=== PATIENT | female | born 1990 | race Caucasian/White ===

== ENCOUNTER 2018-01-12 20:18 | Emergency (ER) | payer BC, OTHER ==
[2018-01-12] MEDS ORDERED: Sodium Chloride 0.9% 2.5 ML Syringe FLUSH PRN (21:30)
[2018-01-12] MEDS ORDERED: Sodium Chloride 0.9% 10 ML Syringe FLUSH PRN (21:30)
--- NOTE | 2018-01-12 21:34 | EDM.PDOC ---
ED HPI GENERAL MEDICAL PROBLEM - General Chief Complaint: Abdominal Pain Stated Complaint: SEVERE STOMACH PAIN Time Seen by Provider: 01/12/18 21:20 - History of Present Illness INITIAL COMMENTS - FREE TEXT/NARRATIVE: HISTORY AND PHYSICAL: History of present illness: The patient is a 27-year-old female whose only significant surgical history is of a and she has no GI history and presents with sudden onset of periumbilical pain that radiated bilaterally to the sides and discomfort in her right shoulder that started about 6:30 PM. Patient had a normal day up until that point with no systemic problems and has had no fever chills cough chest pain or shortness of breath and had a normal bowel movement today and normal urine output. The patient was having food and some cocktails with friends and that discomfort started during that time period. It has persisted but has lessened in intensity. She says if anything it radiates up to her right upper quadrant but not to her lower quadrants or her flanks. She has no discrete shoulder bony pain and has full range of motion of her right upper extremity. She says that the pain is better when she takes a deep breath but when she exhales it seems to be discomforting. She has no discrete mid abdominal pain and no real left upper quadrant tenderness mostly in the periumbilical and right side. Patient denies taking anything For pain prior to coming here. Patient did have 1 small emesis but is not nauseated currently Review of systems: As per history of present illness and below otherwise all systems reviewed and negative. Past medical history: As per history of present illness and as reviewed below otherwise noncontributory. Surgical history: As per history of present illness and as reviewed below otherwise noncontributory. Social history: No reported history of drug or alcohol abuse. Family history: As per history of present illness and as reviewed below otherwise noncontributory. Physical exam: General: Well-developed well-nourished mildly overweight female who is nontoxic and vital signs have been reviewed by me. Patient moves easily in the ED without distress HEENT: Atraumatic, normocephalic, negative for conjunctival pallor or scleral icterus, mucous membranes moist, throat clear, neck supple, nontender, trachea midline. Lungs: Clear to auscultation, breath sounds equal bilaterally, chest nontender. Heart: S1S2, regular, negative for clicks, rubs, or JVD. Abdomen: Soft, nondistended, mildly tender on very deep palpation in the periumbilical and right upper quadrant areas but there is no rebound guarding or masses and bowel sounds are hypoactive. Negative for masses or hepatosplenomegaly. Negative for costovertebral tenderness. Pelvis: Stable nontender. Genitourinary: Deferred. Rectal: Deferred. Extremities: Atraumatic, negative for cords or calf pain. Neurovascular unremarkable. Neuro: Awake, alert, oriented. Cranial nerves II through XII unremarkable. Cerebellum unremarkable. Motor and sensory unremarkable throughout. Exam nonfocal. Diagnostics: CBC CMP amylase lipase UA UCG H. pylori CT scan of the abdomen and pelvis Therapeutics: IV; patient declined medication at this time for pain is aware of all testing results and need for follow-up with your provider at [facility] and possible need for further testing including a gallbladder ultrasound and/or a HIDA scan Impression: Abdominal pain etiology unclear stable Definitive disposition and diagnosis as appropriate pending reevaluation and review of above. gastric area Pain Score (Numeric/FACES): 6 - Related Data Allergies Allergy/AdvReac Type Severity Reaction Status Date / Time amoxicillin Allergy Rash Verified 01/12/18 21:09 Home Meds: Home Meds . 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: Musculoskeletal History: Reports: Fracture Other Musculoskeletal History: hx: Fracturing Right wrist twice Psychiatric History: Reports: Anxiety, Depression Endocrine/Metabolic History: Reports: Obesity/BMI 30+ - Past Surgical History HEENT Surgical History: Reports: Tonsillectomy Cardiovascular Surgical History: Reports: Other (See Below) Female Surgical History: Reports: Section Social & Family History - Family History Family Medical History: Noncontributory Cardiac: Reports: Heart Failure, [place] Psychiatric: Reports: Depression Oncologic: Reports: Colon - Tobacco Use Smoking Status *Q: Never Smoker - Recreational Drug Use Recreational Drug Use: No ED ROS GENERAL - Review of Systems Review Of Systems: ROS reveals no pertinent complaints other than HPI. ED EXAM, GENERAL - Physical Exam Exam: See Below (See dictation) Course - Vital Signs Last Recorded V/S: Last Vital Signs Temp 37.1 C 01/12/18 20:18 Pulse 101 H 01/12/18 20:18 Resp 18 01/12/18 20:18 BP 113/74 01/12/18 20:18 Pulse Ox 98 01/12/18 20:18 - Orders/Labs/Meds Orders: Active Orders 24 hr Category Date Time Status Abdomen Pelvis w Cont [CT] Stat Exams 01/12/18 21:30 Taken HCG QUALITATIVE,URINE [URCHEM] Stat Lab 01/12/18 21:39 Ordered UA W/MICROSCOPIC [URIN] Stat Lab 01/12/18 21:39 Ordered Sodium Chloride 0.9% [Saline Flush] Med 01/12/18 21:30 Active 10 ml FLUSH ASDIRECTED PRN Sodium Chloride 0.9% [Saline Flush] Med 01/12/18 21:30 Active 2.5 ml FLUSH ASDIRECTED PRN Saline Lock Insert [OM.PC] Stat Oth 01/12/18 21:30 Ordered Medication Orders Sodium Chloride (Saline Flush) 10 ml FLUSH ASDIRECTED PRN PRN Reason: Keep Vein Open Sodium Chloride (Saline Flush) 2.5 ml FLUSH ASDIRECTED PRN PRN Reason: Keep Vein Open Labs: Laboratory Tests 01/12/18 01/12/18 01/12/18 Range/Units 21:36 21:36 21:36 WBC 9.30 (4.0-11.0) K/uL RBC 4.55 (4.30-5.90) M/uL Hgb 13.6 (12.0-16.0) g/dL Hct 39.7 (36.0-46.0) % MCV 87.3 (80.0-98.0) fL MCH 29.9 (27.0-32.0) pg MCHC 34.3 (31.0-37.0) g/dL RDW Std Deviation 43.9 (28.0-62.0) fl RDW Coeff of Eliezer 14 (11.0-15.0) % Plt Count 227 (150-400) K/uL MPV 11.10 (7.40-12.00) fL Neut % (Auto) 54.2 (48.0-80.0) % Lymph % (Auto) 38.7 (16.0-40.0) % Bond % (Auto) 5.6 (0.0-15.0) % Eos % (Auto) 1.2 (0.0-7.0) % Baso % (Auto) 0.3 (0.0-1.5) % Neut # (Auto) 5.0 (1.4-5.7) K/uL Lymph # (Auto) 3.6 H (0.6-2.4) K/uL Bond # (Auto) 0.5 (0.0-0.8) K/uL Eos # (Auto) 0.1 (0.0-0.7) K/uL Baso # (Auto) 0.0 (0.0-0.1) K/uL Nucleated RBC % 0.0 /100WBC Nucleated RBCs # 0 K/uL Sodium 141 (136-145) mmol/L Potassium 4.1 (3.5-5.1) mmol/L Chloride 105 (98-107) mmol/L Carbon Dioxide 27.0 (21.0-32.0) mmol/L BUN 10 (7.0-18.0) mg/dL Creatinine 0.7 (0.6-1.0) mg/dL Est Cr Clr Drug Dosing 108.63 mL/min Estimated GFR (MDRD) > 60.0 ml/min Glucose 115 H (74-106) mg/dL Calcium 9.2 (8.5-10.1) mg/dL Total Bilirubin 0.1 L (0.2-1.0) mg/dL AST 17 (15-37) IU/L ALT 26 (14-63) IU/L Alkaline Phosphatase 97 (46-116) U/L Total Protein 7.1 (6.4-8.2) g/dL Albumin 3.5 (3.4-5.0) g/dL Globulin 3.6 H (2.0-3.5) g/dL Albumin/Globulin Ratio 1.0 L (1.3-2.8) Amylase 65 (25-115) U/L Lipase 116 (73-393) U/L Urine Color Urine Appearance Urine pH (5.0-8.0) Ur Specific [place] (1.001-1.035) Urine Protein (NEGATIVE) mg/dL Urine Glucose (UA) (NEGATIVE) mg/dL Urine Ketones (NEGATIVE) mg/dL Urine Occult Blood (NEGATIVE) Urine Nitrite (NEGATIVE) Urine Bilirubin (NEGATIVE) Urine Urobilinogen (<2.0) EU/dL Ur Leukocyte Esterase (NEGATIVE) Urine RBC (0-2/HPF) Urine WBC (0-5/HPF) Ur Epithelial Cells (NONE-FEW) Urine Bacteria (NEGATIVE) Urine HCG, Qual (NEGATIVE) H. pylori IgG Antibody NEGATIVE (NEG) 01/12/18 01/12/18 Range/Units 21:39 21:39 WBC (4.0-11.0) K/uL RBC (4.30-5.90) M/uL Hgb (12.0-16.0) g/dL Hct (36.0-46.0) % MCV (80.0-98.0) fL MCH (27.0-32.0) pg MCHC (31.0-37.0) g/dL RDW Std Deviation (28.0-62.0) fl RDW Coeff of Eliezer (11.0-15.0) % Plt Count (150-400) K/uL MPV (7.40-12.00) fL Neut % (Auto) (48.0-80.0) % Lymph % (Auto) (16.0-40.0) % Bond % (Auto) (0.0-15.0) % Eos % (Auto) (0.0-7.0) % Baso % (Auto) (0.0-1.5) % Neut # (Auto) (1.4-5.7) K/uL Lymph # (Auto) (0.6-2.4) K/uL Bond # (Auto) (0.0-0.8) K/uL Eos # (Auto) (0.0-0.7) K/uL Baso # (Auto) (0.0-0.1) K/uL Nucleated RBC % /100WBC Nucleated RBCs # K/uL Sodium (136-145) mmol/L Potassium (3.5-5.1) mmol/L Chloride (98-107) mmol/L Carbon Dioxide (21.0-32.0) mmol/L BUN (7.0-18.0) mg/dL Creatinine (0.6-1.0) mg/dL Est Cr Clr Drug Dosing mL/min Estimated GFR (MDRD) ml/min Glucose (74-106) mg/dL Calcium (8.5-10.1) mg/dL Total Bilirubin (0.2-1.0) mg/dL AST (15-37) IU/L ALT (14-63) IU/L Alkaline Phosphatase (46-116) U/L Total Protein (6.4-8.2) g/dL Albumin (3.4-5.0) g/dL Globulin (2.0-3.5) g/dL Albumin/Globulin Ratio (1.3-2.8) Amylase (25-115) U/L Lipase (73-393) U/L Urine Color YELLOW Urine Appearance CLEAR Urine pH 7.5 (5.0-8.0) Ur Specific [place] 1.020 (1.001-1.035) Urine Protein NEGATIVE (NEGATIVE) mg/dL Urine Glucose (UA) NEGATIVE (NEGATIVE) mg/dL Urine Ketones TRACE H (NEGATIVE) mg/dL Urine Occult Blood NEGATIVE (NEGATIVE) Urine Nitrite NEGATIVE (NEGATIVE) Urine Bilirubin NEGATIVE (NEGATIVE) Urine Urobilinogen 0.2 (<2.0) EU/dL Ur Leukocyte Esterase NEGATIVE (NEGATIVE) Urine RBC 0-1 (0-2/HPF) Urine WBC 0-1 (0-5/HPF) Ur Epithelial Cells RARE (NONE-FEW) Urine Bacteria RARE (NEGATIVE) Urine HCG, Qual NEGATIVE (NEGATIVE) H. pylori IgG Antibody (NEG) Meds: Medications Generic Name Dose Route Start Last Admin Trade Name Freq PRN Reason Stop Dose Admin Sodium Chloride 10 ml 01/12/18 21:30 Saline Flush FLUSH ASDIRECTED PRN Keep Vein Open Sodium Chloride 2.5 ml 01/12/18 21:30 Saline Flush FLUSH ASDIRECTED PRN Keep Vein Open Departure - Departure Time of Disposition: 23:22 Disposition: Home, Self-Care 01 Condition: Good Clinical Impression: Abdominal pain Qualifiers: Abdominal location: periumbilical Qualified Code(s): R10.33 - Periumbilical pain - Discharge Information Referrals: Karina Wade NP [Primary Care Provider] - Forms: ED Department Discharge Additional Instructions: The following information is given to patients seen in the emergency department who are being discharged to home. This information is to outline your options for follow-up care. We provide all patients seen in our emergency department with a follow-up referral. The need for follow-up, as well as the timing and circumstances, are variable depending upon the specifics of your emergency department visit. If you don't have a primary care physician on staff, we will provide you with a referral. We always advise you to contact your personal physician following an emergency department visit to inform them of the circumstance of the visit and for follow-up with them and/or the need for any referrals to a consulting specialist. The emergency department will also refer you to a specialist when appropriate. This referral assures that you have the opportunity for followup care with a specialist. All of these measure are taken in an effort to provide you with optimal care, which includes your followup. Under all circumstances we always encourage you to contact your private physician who remains a resource for coordinating your care. When calling for followup care, please make the office aware that this follow-up is from your recent emergency room visit. If for any reason you are refused follow-up, please contact the [facility] emergency department at and ask to speak to [place] [address] [facility] Primary care- [place] [address] Please eat a low-fat diet and avoid spicy foods and caffeinated products and alcohol into your followed up in the clinic. Contact your provider at [facility] for further care and evaluation as we discussed or one of our clinic providers. Return to ER as needed and as discussed. - My Orders Last 24 Hours: My Active Orders 01/12/18 21:30 Abdomen Pelvis w Cont [CT] Stat Sodium Chloride 0.9% [Saline Flush] 10 ml FLUSH ASDIRECTED PRN Sodium Chloride 0.9% [Saline Flush] 2.5 ml FLUSH ASDIRECTED PRN Saline Lock Insert [OM.PC] Stat 01/12/18 21:39 HCG QUALITATIVE,URINE [URCHEM] Stat UA W/MICROSCOPIC [URIN] Stat - Assessment/Plan Last 24 Hours: My Active Orders 01/12/18 21:30 Abdomen Pelvis w Cont [CT] Stat Sodium Chloride 0.9% [Saline Flush] 10 ml FLUSH ASDIRECTED PRN Sodium Chloride 0.9% [Saline Flush] 2.5 ml FLUSH ASDIRECTED PRN Saline Lock Insert [OM.PC] Stat 01/12/18 21:39 HCG QUALITATIVE,URINE [URCHEM] Stat UA W/MICROSCOPIC [URIN] Stat
[2018-01-12 22:05] LABS: CHLORIDE,CL 105 mmol/L (98-107); SODIUM,NA 141 mmol/L (136-145)
[2018-01-13 00:34] VITALS: BP 106/63
--- NOTE | 2018-01-13 17:45 | CT ---
EXAM DATE: 01/12/18 PATIENT'S AGE: 27 Patient: DIANDRA SCHROEDER Facility: [place], [place] Site . Site : 1990 Study: CT Abdomen/Pelvis WITH [id number]/9/2018 10:51:22 PM Ordering Physician: Elaina Russell Final Report: INDICATION: Umbilical area pain. TECHNIQUE: CT abdomen and pelvis acquired with i.v. 98 mL Isovue 370. Coronal and sagittal reformats were obtained. 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 Contrast noted in the bilateral renal collecting systems, ureters, and bladder. Lower chest: Unremarkable. Liver: Unremarkable. Spleen: Unremarkable. Pancreas: Unremarkable. Gallbladder and bile ducts: Unremarkable. Kidneys: Unremarkable. No kidney or ureteral stones and no hydronephrosis seen. Adrenal glands: Unremarkable. GI tract: Unremarkable. The appendix is normal in appearance and size. Vascular: Unremarkable. Lymph nodes: Unremarkable. Miscellaneous: Unremarkable. No pneumoperitoneum is seen. No significant ascites is noted. Pelvic Organs: Unremarkable. Bones: Unremarkable for age. IMPRESSION: 1. Unremarkable CT of the abdomen and pelvis. Normal appendix. Dictated by Trent Rodriguez MD @ 01/12/2018 11:15:34 PM Please note that all CT scans at this facility use dose modulation, iterative reconstruction, and/or weight-based dosing when appropriate to reduce radiation dose to as low as reasonably achievable. Dictated by: Trent Rodriguez MD @ 01/12/2018 23:15:40 (Electronic Signature) Report Signed by Proxy. [facility]
== END 2018-01-12 23:50 | disposition home or self-care (01) ==
LOC: MW.ED 20:18
DX: R10.33 Periumbilical pain (principal); Z88.1 Allergy status to other antibiotic agents; F32.9 Major depressive disorder, single episode, unspecified
CPT/HCPCS: 36415; 74177; 74177-26; 80053; 81001; 81025; 82150; 83690; 85025; 86677; 99284-25

== ENCOUNTER 2018-03-03 10:47 | Day surgery (SDC) | payer BC ==
[~2018-03-03 10:47] MED LIST: Lactated Ringers 1,000 ML IV SCH; Midazolam 1 MG/ML 2 ML SDV ONE; Propofol 200 MG/20 ML SDV ONE; Sodium Chloride 0.9% 10 ML Syringe FLUSH PRN; Sodium Chloride 0.9% 2.5 ML Syringe FLUSH PRN; fentaNYL 100 MCG/2 ML SDV ONE
--- NOTE | 2018-03-03 11:29 | PCM.PREANE ---
Preanesthetic Assessment - Anesthesia/Transfusion/Family Hx Anesthesia History: Prior Anesthesia Without Reaction Other Type of Anesthesia Reaction Comment: Reports "nausea with anesthesia" Family History of Anesthesia Reaction: No Transfusion History: No Prior Transfusion(s) Intubation History: Unknown - Review of Systems General: No Symptoms Pulmonary: No Symptoms Cardiovascular: No Symptoms Gastrointestinal: Abdominal Pain, Other (family h/o colon cancer) Neurological: No Symptoms Other: Reports: None - Physical Assessment Height: 1.65 m Weight: 93.44 kg ASA Class: 2 Mental Status: Alert & Oriented x3 Airway Class: Mallampati = 2 Dentition: Reports: Normal Dentition Thyro-Mental Finger Breadths: 3 Mouth Opening Finger Breadths: 3 ROM/Head Extension: Full Lungs: Clear to Auscultation, Normal Respiratory Effort Cardiovascular: Regular Rate, Regular Rhythm - Lab Values: Laboratory Last Values Urine HCG, Qual NEGATIVE (NEGATIVE) 03/03/18 11:00 - Allergies Allergies/Adverse Reactions: Allergies Allergy/AdvReac Type Severity Reaction Status Date / Time amoxicillin Allergy Rash Verified 03/03/18 07:37 - Blood Blood Available: No - Anesthesia Plan Pre-Op Medication Ordered: None - Acknowledgements Anesthesia Type Planned: MAC Pt an Appropriate Candidate for the Planned Anesthesia: Yes Alternatives and Risks of Anesthesia Discussed w Pt/Guardian: Yes Pt/Guardian Understands and Agrees with Anesthesia Plan: Yes PreAnesthesia Questionnaire HEENT History: Reports: Other (See Below) Other HEENT History: lower dental retainer Gastrointestinal History: Reports: Other (See Below) Other Gastrointestinal History: Heartburn when only. She will have cholecystectomy next week. 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: Musculoskeletal History: Reports: Fracture Other Musculoskeletal History: hx: Fracturing Right wrist twice Psychiatric History: Reports: Anxiety, Depression Endocrine/Metabolic History: Reports: Obesity/BMI 30+ - Past Surgical History Head Surgeries/Procedures: Reports: None HEENT Surgical History: Reports: Tonsillectomy Cardiovascular Surgical History: Reports: Other (See Below) Other Cardiovascular Surgeries/Procedures: Pre-eclampsia with first Female Surgical History: Reports: Section Other Female Surgeries/Procedures: x 3 - SUBSTANCE USE Smoking Status *Q: Never Smoker Recreational Drug Use History: No - HOME MEDS Home Medications: Home Meds Ondansetron [Zofran] 8 mg PO ASDIRECTED PRN 03/03/18 [History] - CURRENT (IN HOUSE) MEDS Current Meds: Current Medications Lactated Ringer's (Ringers, Lactated) 1,000 mls @ 125 mls/hr IV ASDIRECTED VIVIAN Last Admin: 03/03/18 11:04 Dose: 125 mls/hr Sodium Chloride (Saline Flush) 10 ml FLUSH ASDIRECTED PRN PRN Reason: Keep Vein Open Sodium Chloride (Saline Flush) 2.5 ml FLUSH ASDIRECTED PRN PRN Reason: Keep Vein Open Sodium Chloride (Saline Flush) 10 ml FLUSH ASDIRECTED PRN PRN Reason: Keep Vein Open Sodium Chloride (Saline Flush) 2.5 ml FLUSH ASDIRECTED PRN PRN Reason: Keep Vein Open Discontinued Medications Fentanyl (Sublimaze) Confirm Administered Dose 100 mcg .ROUTE .STK-MED ONE Stop: 03/03/18 08:10 Midazolam HCl (Versed 1 Mg/Ml) Confirm Administered Dose 2 mg .ROUTE .STK-MED ONE Stop: 03/03/18 08:10 Propofol (Diprivan 20 Ml) Confirm Administered Dose 200 mg .ROUTE .STK-MED ONE Stop: 03/03/18 08:10
[2018-03-03] MEDS ORDERED: Propofol 200 MG/20 ML SDV ONE (11:50)
--- NOTE | 2018-03-03 12:01 | PCM.OPNOTE ---
- General Post-Op/Procedure Note Date of Surgery/Procedure: 03/03/18 Operative Procedure(s): Diagnostic colonoscopy Findings: Normal colonoscopy Pre Op Diagnosis: Family history colon cancer and polyps, change in bowel habits Post-Op Diagnosis: normal colonoscopy Anesthesia Technique: MAC Condition: Good
[2018-03-03 12:24] VITALS: BP 102/63
--- NOTE | 2018-03-03 19:56 | OR ---
SURGEON: NIRMALA GONZALEZ MD DATE OF PROCEDURE: 03/03/2018 PREOPERATIVE DIAGNOSIS: Change in bowel habits, family history of colon cancer/polyps. POSTOPERATIVE DIAGNOSIS: Normal colonoscopy. PROCEDURE PERFORMED: Diagnostic colonoscopy. ANESTHESIA: MAC. INSTRUMENT USED: Olympus colonoscope. EXTENT OF EXAM: To the cecum. PREPARATION: Good. LIMITATIONS: None. INDICATION FOR EXAMINATION: The patient is a 27-year-old female who has recently had an acute change in her bowel habits. Her mother and multiple cousins have had colon polyps removed in their 20s and 30s. Her maternal grandmother of colon cancer. The decision was made to proceed with a diagnostic colonoscopy. We discussed the procedure, expected perioperative course, and risks including bleeding, infection, or damage to surrounding structures including perforation. The patient verbalized understanding and wishes to proceed. PROCEDURE IN DETAIL: The patient was brought to the endoscopy suite and placed in the left lateral decubitus position. A time-out was completed verifying the patient's name, age, date of , allergies, and procedure to be performed. Monitored anesthesia care was induced and continuous oxygen was provided via nasal cannula throughout the procedure. After adequate sedation was achieved, a digital rectal exam was performed. This exam was within normal limits. A well-lubricated colonoscope was inserted into rectum and advanced under direct visualization to the level of cecum. The cecum was identified by both visual and anatomic landmarks. A photograph was taken of the cecal cap, however, I was unable to retroflex the scope within the cecum due to looping of the scope more proximally. The scope was then fully withdrawn while examining the color, texture, anatomy, and integrity of the mucosa from the cecum to the anal canal. The findings were consistent with normal colonic mucosa. The scope was brought into the rectum and retroflexed to allow visualization of the anal canal opening. This appeared normal and a photograph was taken. The scope was then straightened out and removed from the patient. The cecum to anus time was 6 minutes. The patient tolerated the procedure well and was taken to PACU in stable condition. ENDOSCOPIC DIAGNOSIS: Normal colonoscopy. RECOMMENDATIONS: We will see the patient next week to have her gallbladder removed. More than likely, her change in bowel habits are secondary to her biliary disease and possibly some irritable bowel syndrome. SALAS / WILIAM /[id number]
== END 2018-03-03 12:53 | disposition home or self-care (01) ==
LOC: MW.SDS 10:47
PROVIDERS: ATTEND Surgery
DX: R19.4 Change in bowel habit (principal); Z88.0 Allergy status to penicillin; Z83.71 Family history of colonic polyps; K82.8 Other specified diseases of gallbladder; F32.9 Major depressive disorder, single episode, unspecified; E66.9 Obesity, unspecified; Z68.34 Body mass index [BMI] 34.0-34.9, adult; Z88.1 Allergy status to other antibiotic agents
CPT/HCPCS: 81025; J2250; J2704; J3010; J7120

== ENCOUNTER 2018-03-10 08:13 | Day surgery (SDC) | payer BC ==
[~2018-03-10 08:13] MED LIST changes: +Bupivacaine 0.5% 30 ML SDV ONE; +Clindamycin Phosphate in D5W 600 MG in Premix Bag 1 BAG IV SCH; -Midazolam 1 MG/ML 2 ML SDV ONE; -Propofol 200 MG/20 ML SDV ONE; +Scopolamine 1.5 MG Transdermal Patch TRDERM PRN; -fentaNYL 100 MCG/2 ML SDV ONE
[2018-03-10] MEDS ORDERED: Acetaminophen 1,000 MG in Premix Bag 1 BAG IV SCH (08:15)
[2018-03-10] MEDS ORDERED: Midazolam 1 MG/ML 2 ML SDV ONE (08:26)
[2018-03-10] MEDS ORDERED: Propofol 200 MG/20 ML SDV ONE (08:26)
[2018-03-10] MEDS ORDERED: fentaNYL 250 MCG/5 ML SDV ONE (08:26)
[2018-03-10] MEDS ORDERED: Rocuronium 10 MG/ML 10 ML Syringe ONE (08:27)
[2018-03-10] MEDS ORDERED: Lidocaine 2% 5 ML SDV ONE (08:27)
[2018-03-10] MEDS ORDERED: ceFAZolin/Dextrose,Iso-Osmotic 2 GM/50 ML Duplex Bag IV ONE (08:27)
--- NOTE | 2018-03-10 08:36 | PCM.PREANE ---
Preanesthetic Assessment - Anesthesia/Transfusion/Family Hx Anesthesia History: Prior Anesthesia Without Reaction Other Type of Anesthesia Reaction Comment: Reports "nausea with anesthesia" - states after csection Family History of Anesthesia Reaction: No Transfusion History: No Prior Transfusion(s) Intubation History: Unknown - Review of Systems General: No Symptoms Pulmonary: No Symptoms Cardiovascular: No Symptoms Gastrointestinal: No Symptoms Neurological: No Symptoms Other: Reports: None - Physical Assessment NPO Status Date: 03/10/18 NPO Status Time: 00:00 O2 Sat by Pulse Oximetry: 98 Respiratory Rate: 16 Vital Signs: Last Vital Signs Temp 98.1 F 03/10/18 08:22 Pulse 50 L 03/10/18 08:22 Resp 16 03/10/18 08:22 BP 109/80 03/10/18 08:22 Pulse Ox 98 03/10/18 08:22 Height: 5 ft 5 in Weight: 206 lb ASA Class: 2 Mental Status: Alert & Oriented x3 Airway Class: Mallampati = 3 Dentition: Reports: Normal Dentition Thyro-Mental Finger Breadths: 3 Mouth Opening Finger Breadths: 3 ROM/Head Extension: Full Lungs: Clear to Auscultation, Normal Respiratory Effort Cardiovascular: Regular Rate, Regular Rhythm - Lab Values: Laboratory Last Values Urine HCG, Qual NEGATIVE (NEGATIVE) 03/10/18 08:13 - Allergies Allergies/Adverse Reactions: Allergies Allergy/AdvReac Type Severity Reaction Status Date / Time amoxicillin Allergy Rash Verified 03/03/18 07:37 - Blood Blood Available: No Product(s) Available: None - Anesthesia Plan Free Text/Narrative:: GETA Pre-Op Medication Ordered: None - Acknowledgements Anesthesia Type Planned: General Anesthesia Pt an Appropriate Candidate for the Planned Anesthesia: Yes Alternatives and Risks of Anesthesia Discussed w Pt/Guardian: Yes Pt/Guardian Understands and Agrees with Anesthesia Plan: Yes PreAnesthesia Questionnaire HEENT History: Reports: Other (See Below) Other HEENT History: lower dental retainer - permanent behind lower teeth Gastrointestinal History: Reports: Other (See Below) Other Gastrointestinal History: Heartburn when only. She will have cholecystectomy next week. 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: Musculoskeletal History: Reports: Fracture Other Musculoskeletal History: hx: Fracturing Right wrist twice Psychiatric History: Reports: Anxiety, Depression Endocrine/Metabolic History: Reports: Obesity/BMI 30+ - Past Surgical History Head Surgeries/Procedures: Reports: None HEENT Surgical History: Reports: Tonsillectomy Cardiovascular Surgical History: Reports: Other (See Below) Other Cardiovascular Surgeries/Procedures: Pre-eclampsia with first GI Surgical History: Reports: Colonoscopy Female Surgical History: Reports: Section Other Female Surgeries/Procedures: x 3 - SUBSTANCE USE Smoking Status *Q: Never Smoker Recreational Drug Use History: No - HOME MEDS Home Medications: Home Meds Ondansetron [Zofran] 8 mg PO ASDIRECTED PRN 18 [History] - CURRENT (IN HOUSE) MEDS Current Meds: Current Medications Clindamycin Phosphate 600 mg/ (Premix) 50 mls @ 100 mls/hr IV ONETIME VIVIAN Lactated Ringer's (Ringers, Lactated) 1,000 mls @ 125 mls/hr IV ASDIRECTED VIVIAN Last Admin: 03/10/18 08:27 Dose: 125 mls/hr Acetaminophen 1,000 mg/ Premix 100 mls @ 400 mls/hr IV .ONETIME VIVIAN Last Admin: 03/10/18 08:28 Dose: 400 mls/hr Scopolamine (Transderm-Scop) 1.5 mg TRDERM .ONCE PRN PRN Reason: Post Op Nausea Last Admin: 03/10/18 08:27 Dose: 1.5 mg Sodium Chloride (Saline Flush) 10 ml FLUSH ASDIRECTED PRN PRN Reason: Keep Vein Open Sodium Chloride (Saline Flush) 2.5 ml FLUSH ASDIRECTED PRN PRN Reason: Keep Vein Open Discontinued Medications Bupivacaine HCl (Marcaine 0.5%) Confirm Administered Dose 30 ml .ROUTE .STK-MED ONE Stop: 03/10/18 07:18 Cefazolin Sodium/Dextrose (Ancef) Confirm Administered Dose 2 gm IV .STK-MED ONE Stop: 03/10/18 08:28 Fentanyl (Sublimaze) Confirm Administered Dose 250 mcg .ROUTE .STK-MED ONE Stop: 03/10/18 08:27 Lidocaine (Xylocaine-Mpf 2%) Confirm Administered Dose 5 ml .ROUTE .STK-MED ONE Stop: 03/10/18 08:28 Midazolam HCl (Versed 1 Mg/Ml) Confirm Administered Dose 2 mg .ROUTE .STK-MED ONE Stop: 03/10/18 08:27 Propofol (Diprivan 20 Ml) Confirm Administered Dose 200 mg .ROUTE .STK-MED ONE Stop: 03/10/18 08:27 Rocuronium Vinton (Zemuron) Confirm Administered Dose 100 mg .ROUTE .STK-MED ONE Stop: 03/10/18 08:28
[2018-03-10] MEDS ORDERED: Ondansetron 4 MG/2 ML SDV ONE (10:05)
--- NOTE | 2018-03-10 11:43 | PCM.OPNOTE ---
- General Post-Op/Procedure Note Date of Surgery/Procedure: 03/10/18 Operative Procedure(s): Laparoscopic cholecystectomy, lysis of adhesions Findings: Dense adhesions of the gallbladder infundibulum to the duodenum and surrounding liver, lysis of adhesions Pre Op Diagnosis: biliary dyskinesia Post-Op Diagnosis: same, intra-abdominal adhesions Anesthesia Technique: General ET Tube Primary Surgeon: Nicky Morton Fluid Replacement, Intraop: 1,100 Output, Urine Amount: 50 EBL in mLs: 10 Condition: Good
[2018-03-10] MEDS ORDERED: Acetaminophen/oxyCODONE 325-5 MG Tab PO PRN (11:46)
[2018-03-10] MEDS ORDERED: Cyclobenzaprine 5 MG Tab PO PRN (11:46)
--- NOTE | 2018-03-10 12:18 | PCM.POSTAN ---
POST ANESTHESIA ASSESSMENT - MENTAL STATUS Mental Status: Alert, Oriented - RESPIRATORY Respiratory Status: Respiratory Rate WNL, Airway Patent, O2 Saturation Stable - CARDIOVASCULAR CV Status: Pulse Rate WNL, Blood Pressure Stable - GASTROINTESTINAL GI Status: No Symptoms - PAIN Pain Score: 3 - POST OP HYDRATION Hydration Status: Adequate & Stable
--- NOTE | 2018-03-10 13:04 | PCM48HPAN ---
Post Anesthesia Note - EVALUATION WITHIN 48HRS OF ANESTHETIC Vital Signs in Normal Range: Yes Patient Participated in Evaluation: Yes Respiratory Function Stable: Yes Airway Patent: Yes Cardiovascular Function Stable: Yes Hydration Status Stable: Yes Pain Control Satisfactory: Yes Nausea and Vomiting Control Satisfactory: Yes Mental Status Recovered: Yes Resp Rate: 12 - COMMENTS/OBSERVATIONS Free Text/Narrative:: Pt doing well post op. Pt states pain control satisfactory and very mild nausea. Pt wants to rest a little long prior to going home.
[2018-03-10 14:24] VITALS: BP 103/70
--- NOTE | 2018-03-10 16:35 | OR ---
SURGEON: NIRMALA GONZALEZ MD DATE OF PROCEDURE: 03/10/2018 PREOPERATIVE DIAGNOSIS: Biliary dyskinesia. POSTOPERATIVE DIAGNOSIS: Biliary dyskinesia. PROCEDURE PERFORMED: Laparoscopic cholecystectomy. ANESTHESIA: General endotracheal anesthesia. FLUIDS: 1100 mL of crystalloid. ESTIMATED BLOOD LOSS: 10 mL. URINE OUTPUT: 50 mL. FINDINGS: Normal-appearing gallbladder; however, the infundibulum had adhesions to the liver capsule and duodenum. COMPLICATIONS: None. INDICATIONS: The patient is a 27-year-old female, who presents with biliary dyskinesia. I explained the pathology of biliary disease. The treatment for biliary dyskinesia is removal of the gallbladder. We discussed laparoscopic and open approaches. I will attempt this laparoscopically, but should I be unable to do it safely, I will convert it to open. We discussed the procedure, expected perioperative course, and risks including bleeding, infection, or damage to surrounding structures. The patient verbalized understanding and wishes to proceed. PROCEDURE IN DETAIL: The patient was brought into the operating room and placed on the OR table in supine position. A time-out was completed verifying the patient's name, age, date of , allergies, and procedure to be performed. General endotracheal anesthesia was induced. The left arm was tucked at the patient's side and a Hernandez catheter placed. The abdomen was prepped and draped in usual standard fashion. I used 0.5% Marcaine plain to anesthetize the infraumbilical fold. A 15 blade was used to make an incision along this area. Cautery was used to dissect down to the subcutaneous fat. Appendiceal retractors were used to bluntly dissect down to the level of fascia. The fascia was grasped with Cornelius and elevated. It was then incised with the Metzenbaum scissors. I then identified the peritoneum and grasped this with hemostats. It was then opened using a Metzenbaum scissors. I palpated entry into the abdomen. A 12-mm Franki trocar was placed in the abdomen and it was insufflated to a pressure of 12 mm 12 mmHg. A 5 mm 30-degree scope was inserted in the abdomen. No damage to surrounding structures was noted. The patient was placed into reverse Trendelenburg position and airplaned slightly to the left. 5 mm trocars were placed in the following locations under direct visualization, one in the epigastric area, one in the right flank, and one 2 fingerbreadths below the right subcostal margin in the midclavicular line. The dome of the gallbladder was grasped and elevated above the liver. I identified the infundibulum. The patient was noted to have dense adhesions around the infundibulum to the liver capsule medially and the underlying duodenum. I took these down using blunt dissection and hook cautery. A small tear was made to the liver capsule medially. Hemostasis was achieved using cautery. Once this was cleared away, I could then identify my triangle of Calot. I dissected and cleared away all the structures around the cystic duct and artery. I then cleared away the proximal one-third of the cystic plate. Once my critical view was achieved, I doubly clipped and ligated my cystic duct and artery. The gallbladder was then removed from the gallbladder fossa using electrocautery. Once it was freed, I placed an EndoCatch bag and removed through the infraumbilical port site. Unfortunately, a small rent was made in the gallbladder and bile was spilled into the abdomen. The 12 mm Franki trocar was placed back in the abdomen and I irrigated the operative field copiously with normal saline until it ran clear. I suctioned this all out and then reinspected my operative field. It appeared to be hemostatic and there was no evidence of any bile leakage. The trocars were then removed under direct visualization and the abdomen allowed to desufflate. The subcutaneous fat area was closed with interrupted 3-0 Vicryl sutures. The skin was closed with a running 4-0 Monocryl stitch. The 5 mm trocar sites were closed with interrupted 4-0 Monocryl stitches in the skin. Steri-Strips and sterile dressings were applied. The patient tolerated procedure well and was taken to PACU in stable condition. SALAS SWAIN /[id number]
== END 2018-03-10 14:08 | disposition home or self-care (01) ==
LOC: MW.SDS 08:13
PROVIDERS: ATTEND Surgery
DX: K81.1 Chronic cholecystitis (principal); F32.9 Major depressive disorder, single episode, unspecified; E66.9 Obesity, unspecified; Z68.34 Body mass index [BMI] 34.0-34.9, adult; Z79.899 Other long term (current) drug therapy; Z88.1 Allergy status to other antibiotic agents
CPT/HCPCS: 47562; 81025; A9270; J0690; J2250; J2405; J3010; J7120; J2704